=== PATIENT | male | born 1945 | race Caucasian/White ===

== ENCOUNTER 2021-07-12 20:02 | Inpatient (IN) ==
[2021-07-13 01:28] LABS: Calcium 8.6 mg/dL (8.6-10.3); Potassium 4.3 mEq/L (3.5-5.1)
[2021-07-13 01:41] LABS: Hematocrit 29.1 % (37.5-50.1); Hemoglobin 9.2 g/dL (12.9-16.9); Mean Corpuscular HGB Conc 31.6 g/dL (31.6-35.5); Mean Corpuscular Hemoglobin 26.7 pg (28.0-33.3); Mean Corpuscular Volume 84.6 fL (83.0-100.0); Mean Platelet Volume 10.2 fL (9.4-12.4); Platelet Count 113 K/mcL (140-400); Red Blood Count 3.44 M/mcL (4.19-5.50); Red Cell Distribution Width 16.4 % (11.5-14.5); White Blood Count 4.2 K/mcL (4.3-11.1)
[2021-07-13] MEDS ORDERED: Doxycycline 100 MG CAPSULE PO ONE (04:02)
[2021-07-13] MEDS ORDERED: cefTRIAXone 1,000 MG in Water for inj. (sterile) 10 ML IVP ONE (04:02)
[2021-07-13] MEDS ORDERED: *HR* OxyCODONE/APAP 5/325 TABLET PO ONE (04:17)
[2021-07-13] MEDS ORDERED: *HR* Promethazine 25 MG/ML VIAL IM PRN (05:57)
[2021-07-13] MEDS ORDERED: Naloxone 0.4 MG/ML INJ IVP PRN (05:57)
[2021-07-13] MEDS ORDERED: Ondansetron 4 MG/2 ML VIAL IVP PRN (05:57)
[2021-07-13] MEDS ORDERED: 0.9 % Sodium Chloride 1,000 ML IVC SCH (06:00)
[2021-07-13 06:02] LABS: Uric Acid 7.9 mg/dL (2.3-7.6)
[2021-07-13] MEDS ORDERED: Dextrose Gel 15 GM/37.5 ML TUBE PO PRN ×2 (06:05)
[2021-07-13] MEDS ORDERED: D5% in Water 1,000 ML IVC PRN (06:05)
[2021-07-13] MEDS ORDERED: *HR* Dextrose 50 % in Water (Syg) 50 ML SYRINGE IVP PRN (06:07)
[2021-07-13] MEDS ORDERED: *HR* Metoprolol 5 MG/5 ML VIAL IVP PRN (06:09)
[2021-07-13] MEDS: Piperacillin/Tazobactam 3.375 GM in 0.9 % Sodium Chloride Mini Bag 100 ML IVPB SCH ×2 (09:06→18:45)
[2021-07-13] MEDS: *HR* OxyCODONE Immed Rel 5 MG TABLET PO PRN ×3 (09:36→22:28)
[2021-07-13 10:58] LABS: Folate > 22.3 ng/mL (3.0-16.0); Vitamin B12 473 pg/mL (250-1100)
[2021-07-13] MEDS: Insulin LISPRO 300 UNITS/3 ML VIAL SUBQ SCH ×2 (13:04→17:16)
[2021-07-14] MEDS: Insulin LISPRO 300 UNITS/3 ML VIAL SUBQ SCH ×4 (00:55→16:53)
[2021-07-14] MEDS: Piperacillin/Tazobactam 3.375 GM in 0.9 % Sodium Chloride Mini Bag 100 ML IVPB SCH ×3 (01:09→16:35)
[2021-07-14] MEDS: Vancomycin 1,250 MG/262.5 ML IV.SOLN IVPB SCH (04:53)
[2021-07-14] MEDS: *HR* HYDROcodone/Acet 5/325 mg TABLET PO PRN ×2 (05:01→14:16)
[2021-07-14 05:19] LABS: Basophils % 0.4 %; Eosinophils % 0.4 %; Hematocrit 32.7 % (37.5-50.1); Hemoglobin 10.3 g/dL (12.9-16.9); Immature Granulocytes % 0.4 % (0-4); Lymphocytes # 0.3 K/mcL (0.6-4.6); Mean Corpuscular HGB Conc 31.5 g/dL (31.6-35.5); Mean Corpuscular Hemoglobin 27.2 pg (28.0-33.3); Mean Corpuscular Volume 86.3 fL (83.0-100.0); Mean Platelet Volume 10.3 fL (9.4-12.4); Monocytes # 0.3 K/mcL (0.0-1.3); Monocytes % 5.6 %; Neutrophils # 4.5 K/mcL (1.6-8.9); Platelet Count 117 K/mcL (140-400); Red Blood Count 3.79 M/mcL (4.19-5.50); Red Cell Distribution Width 16.6 % (11.5-14.5); Segmented Neutrophils % 87.2 %; White Blood Count 5.1 K/mcL (4.3-11.1)
[2021-07-14] MEDS ORDERED: Famotidine 20 MG/2 ML VIAL IVP ONE (07:00)
[2021-07-14] MEDS ORDERED: Ondansetron 4 MG/2 ML VIAL ONE (07:28)
[2021-07-14] MEDS ORDERED: Lidocaine -MPF 2% 2 ML VIAL ONE (07:28)
[2021-07-14] MEDS ORDERED: Artificial Tears SOLN 15 ML BOTTLE BOTH EYES PRN (08:12)
[2021-07-14] MEDS ORDERED: NON-FORMULARY MEDICATION 1 EACH EACH (Oxycodone Immed Rel 10 MG Tablet) PO PRN (08:12)
[2021-07-14] MEDS ORDERED: EPHEDrine 50 MG/ML VIAL ONE (08:38)
[2021-07-14] MEDS ORDERED: Acetaminophen IV 1,000 MG/100 ML BAG IVPB ONE (08:44)
[2021-07-14 08:45] LABS: Albumin 3.7 g/dL (3.5-5.7); Albumin/Globulin Ratio 0.8 (1.1-2.2); Calcium 9.2 mg/dL (8.6-10.3); Globulin 4.5 g/dL (2.4-3.5); Potassium 4.4 mEq/L (3.5-5.1); Total Protein 8.2 g/dL (6.4-8.9)
[2021-07-14] MEDS ORDERED: cefTRIAXone 1,000 MG in Water for inj. (sterile) 10 ML IVP SCH (09:00)
[2021-07-14] MEDS: *HR* OxyCODONE Immed Rel 5 MG TABLET PO PRN ×2 (09:55→16:34)
[2021-07-14] MEDS: Carbidopa/Levodopa 25/100 TABLET PO SCH ×3 (09:55→21:10)
[2021-07-14] MEDS: Finasteride 5 MG TABLET PO SCH (09:55)
[2021-07-14] MEDS: Metoprolol XL (24 HR) Succ 50 MG TAB.ER.24H PO SCH (09:55)
[2021-07-14] MEDS: Pyridoxine (B-6) 50 MG TABLET PO SCH (09:55)
[2021-07-14] MEDS: Folic Acid 1 MG TABLET PO SCH ×2 (09:56→21:10)
[2021-07-14] MEDS: rOPINIRole 1 MG TABLET PO SCH ×3 (09:56→21:10)
[2021-07-14] MEDS: *HR* Heparin 5,000 UNIT/ML VIAL SQ SCH (16:34)
[2021-07-14] MEDS: Gabapentin 300 MG CAPSULE PO SCH (21:10)
[2021-07-14] MEDS: Insulin DETEMIR 100 UNIT/ML X5UNITS SUBQ SCH (21:11)
[2021-07-15] MEDS: Piperacillin/Tazobactam 3.375 GM in 0.9 % Sodium Chloride Mini Bag 100 ML IVPB SCH ×3 (00:48→18:34)
[2021-07-15 04:58] LABS: Basophils % 0.3 %; Eosinophils % 0.8 %; Hemoglobin 9.3 g/dL (12.9-16.9); Immature Granulocytes % 0.3 % (0-4); Lymphocytes # 0.5 K/mcL (0.6-4.6); Lymphocytes % 14.3 %; Mean Corpuscular HGB Conc 32.1 g/dL (31.6-35.5); Mean Corpuscular Hemoglobin 27.8 pg (28.0-33.3); Mean Corpuscular Volume 86.6 fL (83.0-100.0); Mean Platelet Volume 10.1 fL (9.4-12.4); Monocytes # 0.3 K/mcL (0.0-1.3); Neutrophils # 2.8 K/mcL (1.6-8.9); Platelet Count 108 K/mcL (140-400); Red Blood Count 3.35 M/mcL (4.19-5.50); Red Cell Distribution Width 16.9 % (11.5-14.5); Segmented Neutrophils % 76.3 %; White Blood Count 3.6 K/mcL (4.3-11.1)
[2021-07-15] MEDS: *HR* Heparin 5,000 UNIT/ML VIAL SQ SCH ×2 (04:59→18:36)
[2021-07-15] MEDS: Vancomycin 1,250 MG/262.5 ML IV.SOLN IVPB SCH (05:00)
[2021-07-15 05:11] LABS: Acinetobacter baumannii by PCR Not Detected (Not Detect); Candida albicans by PCR Not Detected (Not Detect); Candida glabrata by PCR Not Detected (Not Detect); Candida krusei by PCR Not Detected (Not Detect); Candida parapsilosis by PCR Not Detected (Not Detect); Candida tropicalis by PCR Not Detected (Not Detect); Enterobacter cloacae Cmplx PCR Not Detected (Not Detect); Enterobacteriaceae by PCR Not Detected (Not Detect); Enterococcus by PCR Not Detected (Not Detect); Escherichia coli by PCR Not Detected (Not Detect); Klebsiella oxytoca by PCR Not Detected (Not Detect); Klebsiella pneumoniae by PCR Not Detected (Not Detect); Proteus by PCR Not Detected (Not Detect); Pseudomonas aeruginosa by PCR Not Detected (Not Detect); Serratia marcescens by PCR Not Detected (Not Detect); Staphylococcus aureus by PCR Not Detected (Not Detect); Staphylococcus by PCR Not Detected (Not Detect); Streptococcus agalactiae(B)PCR Not Detected (Not Detect); Streptococcus by PCR Not Detected (Not Detect); Streptococcus pneumoniae PCR Not Detected (Not Detect); Streptococcus pyogenes (A) PCR Not Detected (Not Detect); mecA Methicillin-Resist Gene Not Detected (Not Detect); vanA/B Vancomycin-Resist Genes Not Detected (Not Detect)
[2021-07-15 05:18] LABS: Magnesium 2.1 mg/dL (1.6-2.6); Potassium 4.3 mEq/L (3.5-5.1)
[2021-07-15 05:36] LABS: Estimated Average Glucose 183 mg/dl
[2021-07-15] MEDS ORDERED: Perflutren Lipid Microsphere 1.3 ML in 0.9 % Sodium Chloride 8.7 ML IVP PRN (07:28)
[2021-07-15] MEDS: rOPINIRole 1 MG TABLET PO SCH ×3 (09:36→22:45)
[2021-07-15] MEDS: Furosemide 40 MG TABLET PO SCH (09:37)
[2021-07-15] MEDS: Gabapentin 300 MG CAPSULE PO SCH ×2 (09:37→22:46)
[2021-07-15] MEDS: Finasteride 5 MG TABLET PO SCH (09:37)
[2021-07-15] MEDS: Metoprolol XL (24 HR) Succ 50 MG TAB.ER.24H PO SCH (09:37)
[2021-07-15] MEDS: Folic Acid 1 MG TABLET PO SCH ×2 (09:37→22:45)
[2021-07-15] MEDS: Pyridoxine (B-6) 50 MG TABLET PO SCH (09:37)
[2021-07-15] MEDS: Carbidopa/Levodopa 25/100 TABLET PO SCH ×3 (09:37→22:46)
[2021-07-15] MEDS: Insulin LISPRO 300 UNITS/3 ML VIAL SUBQ SCH ×3 (09:38→18:42)
[2021-07-15] MEDS: *HR* OxyCODONE Immed Rel 5 MG TABLET PO PRN ×2 (10:00→22:56)
[2021-07-15] MEDS: Insulin DETEMIR 100 UNIT/ML X5UNITS SUBQ SCH (22:45)
[2021-07-16] MEDS: Piperacillin/Tazobactam 3.375 GM in 0.9 % Sodium Chloride Mini Bag 100 ML IVPB SCH ×3 (02:26→18:28)
[2021-07-16 04:31] LABS: Basophils % 0.5 %; Eosinophils % 0.5 %; Hematocrit 27.6 % (37.5-50.1); Hemoglobin 8.6 g/dL (12.9-16.9); Immature Granulocytes % 0.3 % (0-4); Lymphocytes # 0.8 K/mcL (0.6-4.6); Lymphocytes % 20.4 %; Mean Corpuscular HGB Conc 31.2 g/dL (31.6-35.5); Mean Corpuscular Hemoglobin 26.3 pg (28.0-33.3); Mean Corpuscular Volume 84.4 fL (83.0-100.0); Mean Platelet Volume 9.9 fL (9.4-12.4); Monocytes # 0.3 K/mcL (0.0-1.3); Monocytes % 8.4 %; Neutrophils # 2.7 K/mcL (1.6-8.9); Platelet Count 115 K/mcL (140-400); Red Blood Count 3.27 M/mcL (4.19-5.50); Red Cell Distribution Width 16.7 % (11.5-14.5); Segmented Neutrophils % 69.9 %; White Blood Count 3.8 K/mcL (4.3-11.1)
[2021-07-16 04:50] LABS: Calcium 8.4 mg/dL (8.6-10.3); Phosphorous 3.3 mg/dL (2.7-4.5); Potassium 4.2 mEq/L (3.5-5.1)
[2021-07-16] MEDS: Vancomycin 1,250 MG/262.5 ML IV.SOLN IVPB SCH (05:41)
[2021-07-16] MEDS: *HR* Heparin 5,000 UNIT/ML VIAL SQ SCH ×2 (05:41→18:29)
[2021-07-16] MEDS: Finasteride 5 MG TABLET PO SCH (07:52)
[2021-07-16] MEDS: Furosemide 40 MG TABLET PO SCH (07:52)
[2021-07-16] MEDS: rOPINIRole 1 MG TABLET PO SCH ×3 (07:52→22:53)
[2021-07-16] MEDS: Carbidopa/Levodopa 25/100 TABLET PO SCH ×3 (07:52→22:54)
[2021-07-16] MEDS: Folic Acid 1 MG TABLET PO SCH ×2 (07:52→22:53)
[2021-07-16] MEDS: Pyridoxine (B-6) 50 MG TABLET PO SCH (07:53)
[2021-07-16] MEDS: Gabapentin 300 MG CAPSULE PO SCH ×2 (07:53→22:54)
[2021-07-16] MEDS: Metoprolol XL (24 HR) Succ 50 MG TAB.ER.24H PO SCH (07:53)
[2021-07-16] MEDS: Insulin LISPRO 300 UNITS/3 ML VIAL SUBQ SCH ×3 (07:54→19:45)
[2021-07-16] MEDS: Insulin DETEMIR 100 UNIT/ML X5UNITS SUBQ SCH (23:13)
[2021-07-16] MEDS: traZODone 50 MG TABLET PO PRN (23:14)
[2021-07-16] MEDS: *HR* OxyCODONE Immed Rel 5 MG TABLET PO PRN (23:21)
[2021-07-17] MEDS: Piperacillin/Tazobactam 3.375 GM in 0.9 % Sodium Chloride Mini Bag 100 ML IVPB SCH ×2 (02:09→10:17)
[2021-07-17 05:35] LABS: Adenovirus Not Detected (Not Detect); Bordetella Pertussis Not Detected (Not Detect); Chlamydophila pneumoniae Not Detected (Not Detect); Coronavirus 229E Not Detected (Not Detect); Coronavirus HKU1 Not Detected (Not Detect); Coronavirus NL63 Not Detected (Not Detect); Coronavirus OC43 Not Detected (Not Detect); Human Metapneumovirus Not Detected (Not Detect); Human Rhinovirus/Enterovirus Not Detected (Not Detect); Influenza A Subtype 2009 H1 Not Detected (Not Detect); Influenza B Not Detected (Not Detect); Mycoplasma pneumoniae Not Detected (Not Detect); Parainfluenza Virus 1 Not Detected (Not Detect); Parainfluenza Virus 2 Not Detected (Not Detect); Parainfluenza Virus 3 Not Detected (Not Detect); Parainfluenza Virus 4 Not Detected (Not Detect); Respiratory Syncytial Virus Not Detected (Not Detect)
[2021-07-17 05:36] LABS: SARS-CoV-2 DETECTED (Not Detect)
[2021-07-17] MEDS ORDERED: Vancomycin 1,250 MG/262.5 ML IV.SOLN IVPB SCH (08:00)
[2021-07-17] MEDS: Gabapentin 300 MG CAPSULE PO SCH (10:19)
[2021-07-17] MEDS: Carbidopa/Levodopa 25/100 TABLET PO SCH ×2 (10:19→20:03)
[2021-07-17] MEDS: Finasteride 5 MG TABLET PO SCH (10:19)
[2021-07-17] MEDS: Metoprolol XL (24 HR) Succ 50 MG TAB.ER.24H PO SCH (10:19)
[2021-07-17] MEDS: rOPINIRole 1 MG TABLET PO SCH ×3 (10:19→22:50)
[2021-07-17] MEDS: Folic Acid 1 MG TABLET PO SCH (10:19)
[2021-07-17] MEDS: Pyridoxine (B-6) 50 MG TABLET PO SCH (10:19)
[2021-07-17] MEDS: Furosemide 40 MG TABLET PO SCH (10:19)
[2021-07-17] MEDS: Insulin LISPRO 300 UNITS/3 ML VIAL SUBQ SCH ×3 (10:20→20:03)
[2021-07-17] MEDS ORDERED: Nitroglycerin 0.4 MG TAB.SUBL SL PRN (10:23)
[2021-07-17] MEDS: *HR* OxyCODONE Immed Rel 5 MG TABLET PO PRN (12:39)
[2021-07-17] MEDS: *HR* Heparin 5,000 UNIT/ML VIAL SQ SCH ×2 (12:40→20:03)
[2021-07-17 13:00] LABS: Troponin I 0.03 ng/mL (< 0.04)
[2021-07-17] MEDS: Insulin DETEMIR 100 UNIT/ML X5UNITS SUBQ SCH (22:40)
[2021-07-18] MEDS: Gabapentin 300 MG CAPSULE PO SCH ×3 (00:42→21:09)
[2021-07-18] MEDS: Carbidopa/Levodopa 25/100 TABLET PO SCH ×4 (00:42→21:09)
[2021-07-18] MEDS: *HR* OxyCODONE Immed Rel 5 MG TABLET PO PRN ×2 (00:42→11:14)
[2021-07-18] MEDS: traZODone 50 MG TABLET PO PRN (00:42)
[2021-07-18] MEDS: Folic Acid 1 MG TABLET PO SCH ×3 (00:42→21:09)
[2021-07-18 04:42] LABS: Hemoglobin 9.6 g/dL (12.9-16.9); Immature Granulocytes % 0.4 % (0-4)
[2021-07-18 04:44] LABS: Basophils % 0.4 %; Eosinophils % 1.2 %; Hematocrit 30.2 % (37.5-50.1); Immature Platelets 2.7 % (1.1-6.1); Lymphocytes # 0.6 K/mcL (0.6-4.6); Lymphocytes % 23.5 %; Mean Corpuscular HGB Conc 31.8 g/dL (31.6-35.5); Mean Corpuscular Hemoglobin 26.7 pg (28.0-33.3); Mean Corpuscular Volume 83.9 fL (83.0-100.0); Mean Platelet Volume 9.9 fL (9.4-12.4); Monocytes # 0.2 K/mcL (0.0-1.3); Monocytes % 8.8 %; Red Cell Distribution Width 16.1 % (11.5-14.5); Segmented Neutrophils % 65.7 %; White Blood Count 2.5 K/mcL (4.3-11.1)
[2021-07-18 04:50] LABS: Neutrophils # 1.6 K/mcL (1.6-8.9); Platelet Count 91 K/mcL (140-400)
[2021-07-18 04:58] LABS: Calcium 8.2 mg/dL (8.6-10.3); Magnesium 1.8 mg/dL (1.6-2.6); Phosphorous 3.8 mg/dL (2.7-4.5); Potassium 3.8 mEq/L (3.5-5.1)
[2021-07-18] MEDS: *HR* Heparin 5,000 UNIT/ML VIAL SQ SCH ×2 (07:32→20:51)
[2021-07-18] MEDS: Finasteride 5 MG TABLET PO SCH (10:00)
[2021-07-18] MEDS: rOPINIRole 1 MG TABLET PO SCH ×3 (10:00→21:09)
[2021-07-18] MEDS: Pyridoxine (B-6) 50 MG TABLET PO SCH (10:00)
[2021-07-18] MEDS: Furosemide 40 MG TABLET PO SCH (10:00)
[2021-07-18] MEDS: Metoprolol XL (24 HR) Succ 50 MG TAB.ER.24H PO SCH (10:01)
[2021-07-18] MEDS: Insulin LISPRO 300 UNITS/3 ML VIAL SUBQ SCH ×3 (10:01→16:21)
[2021-07-18] MEDS: Vancomycin 1,250 MG/262.5 ML IV.SOLN IVPB SCH (12:06)
[2021-07-18] MEDS ORDERED: Lidocaine -MPF 1% 5 ML AMPUL INFILT ONE (17:15)
[2021-07-18] MEDS: Insulin DETEMIR 100 UNIT/ML X5UNITS SUBQ SCH (22:27)
[2021-07-18] MEDS: Acetaminophen 325 MG TABLET PO PRN (23:55)
[2021-07-19] MEDS: *HR* OxyCODONE Immed Rel 5 MG TABLET PO PRN ×2 (05:15→17:02)
[2021-07-19] MEDS: *HR* Heparin 5,000 UNIT/ML VIAL SQ SCH ×2 (05:15→16:59)
[2021-07-19 07:14] LABS: Basophils % 0.4 %; Hemoglobin 9.4 g/dL (12.9-16.9); Immature Granulocytes % 0.4 % (0-4)
[2021-07-19 07:16] LABS: Eosinophils % 0.8 %; Immature Platelets 3.1 % (1.1-6.1); Lymphocytes # 0.7 K/mcL (0.6-4.6); Lymphocytes % 27.4 %; Mean Corpuscular HGB Conc 32.4 g/dL (31.6-35.5); Mean Corpuscular Hemoglobin 26.8 pg (28.0-33.3); Mean Corpuscular Volume 82.6 fL (83.0-100.0); Mean Platelet Volume 9.9 fL (9.4-12.4); Monocytes # 0.2 K/mcL (0.0-1.3); Monocytes % 6.5 %; Neutrophils # 1.6 K/mcL (1.6-8.9); Red Blood Count 3.51 M/mcL (4.19-5.50); Red Cell Distribution Width 16.2 % (11.5-14.5); Segmented Neutrophils % 64.5 %; White Blood Count 2.5 K/mcL (4.3-11.1)
[2021-07-19 07:17] LABS: Platelet Count 94 K/mcL (140-400)
[2021-07-19 07:33] LABS: Calcium 8.3 mg/dL (8.6-10.3); Potassium 3.8 mEq/L (3.5-5.1)
[2021-07-19] MEDS: Carbidopa/Levodopa 25/100 TABLET PO SCH ×3 (09:10→22:15)
[2021-07-19] MEDS: rOPINIRole 1 MG TABLET PO SCH ×3 (09:10→22:16)
[2021-07-19] MEDS: Metoprolol XL (24 HR) Succ 50 MG TAB.ER.24H PO SCH (09:10)
[2021-07-19] MEDS: Folic Acid 1 MG TABLET PO SCH ×2 (09:10→22:16)
[2021-07-19] MEDS: Gabapentin 300 MG CAPSULE PO SCH ×2 (09:10→22:15)
[2021-07-19] MEDS: Pyridoxine (B-6) 50 MG TABLET PO SCH (09:10)
[2021-07-19] MEDS: Furosemide 40 MG TABLET PO SCH (09:10)
[2021-07-19] MEDS: Finasteride 5 MG TABLET PO SCH (09:10)
[2021-07-19] MEDS: Insulin LISPRO 300 UNITS/3 ML VIAL SUBQ SCH ×3 (09:11→17:01)
[2021-07-19] MEDS: Vancomycin 1,250 MG/262.5 ML IV.SOLN IVPB SCH (11:34)
[2021-07-19] MEDS: Acetaminophen 325 MG TABLET PO PRN (11:57)
[2021-07-19] MEDS: Insulin DETEMIR 100 UNIT/ML X5UNITS SUBQ SCH (22:16)
[2021-07-20] MEDS: Acetaminophen 325 MG TABLET PO PRN (00:32)
[2021-07-20] MEDS: *HR* Heparin 5,000 UNIT/ML VIAL SQ SCH ×2 (06:47→17:28)
[2021-07-20] MEDS: Insulin LISPRO 300 UNITS/3 ML VIAL SUBQ SCH ×3 (08:13→17:28)
[2021-07-20] MEDS: Furosemide 40 MG TABLET PO SCH (08:13)
[2021-07-20] MEDS: rOPINIRole 1 MG TABLET PO SCH ×3 (08:13→21:43)
[2021-07-20] MEDS: Finasteride 5 MG TABLET PO SCH (08:13)
[2021-07-20] MEDS: Carbidopa/Levodopa 25/100 TABLET PO SCH ×3 (08:14→21:44)
[2021-07-20] MEDS: Pyridoxine (B-6) 50 MG TABLET PO SCH (08:14)
[2021-07-20] MEDS: Metoprolol XL (24 HR) Succ 50 MG TAB.ER.24H PO SCH (08:14)
[2021-07-20] MEDS: Folic Acid 1 MG TABLET PO SCH ×2 (08:14→21:44)
[2021-07-20] MEDS: Gabapentin 300 MG CAPSULE PO SCH ×2 (08:14→21:44)
[2021-07-20 09:32] LABS: Calcium 8.6 mg/dL (8.6-10.3); Potassium 4.3 mEq/L (3.5-5.1)
[2021-07-20] MEDS: dexAMETHasone 4 MG TABLET PO SCH (09:44)
[2021-07-20] MEDS: *HR* HYDROcodone/Acet 5/325 mg TABLET PO PRN (09:45)
[2021-07-20] MEDS: Vancomycin 1,250 MG/262.5 ML IV.SOLN IVPB SCH (13:34)
[2021-07-20 15:53] LABS: Albumin 3.2 g/dL (3.5-5.7); Albumin/Globulin Ratio 0.7 (1.1-2.2); Bilirubin,Direct 0.3 mg/dL (0.0-0.2); Bilirubin,Indirect 0.6 mg/dL (0.0-1.0); Bilirubin,Total 0.9 mg/dL (0.3-1.0); Globulin 4.5 g/dL (2.4-3.5); Total Protein 7.7 g/dL (6.4-8.9)
[2021-07-20] MEDS ORDERED: Remdesivir 200 MG in 0.9 % Sodium Chloride 100 ML IVPB ONE (18:00)
[2021-07-20] MEDS: Insulin DETEMIR 100 UNIT/ML X5UNITS SUBQ SCH (21:44)
[2021-07-20] MEDS: metroNIDAZOLE 500 MG TABLET PO SCH (21:46)
[2021-07-21] MEDS: *HR* HYDROcodone/Acet 5/325 mg TABLET PO PRN ×2 (00:27→20:04)
[2021-07-21] MEDS: *HR* Heparin 5,000 UNIT/ML VIAL SQ SCH ×2 (05:08→17:13)
[2021-07-21] MEDS: *HR* OxyCODONE Immed Rel 5 MG TABLET PO PRN ×2 (06:15→20:14)
[2021-07-21] MEDS: Insulin LISPRO 300 UNITS/3 ML VIAL SUBQ SCH ×3 (09:17→17:13)
[2021-07-21] MEDS: dexAMETHasone 4 MG TABLET PO SCH (09:19)
[2021-07-21] MEDS: Folic Acid 1 MG TABLET PO SCH ×2 (09:19→20:05)
[2021-07-21] MEDS: metroNIDAZOLE 500 MG TABLET PO SCH ×3 (09:19→20:05)
[2021-07-21] MEDS: Gabapentin 300 MG CAPSULE PO SCH ×2 (09:20→20:05)
[2021-07-21] MEDS: Furosemide 40 MG TABLET PO SCH (09:20)
[2021-07-21] MEDS: Finasteride 5 MG TABLET PO SCH (09:21)
[2021-07-21] MEDS: Carbidopa/Levodopa 25/100 TABLET PO SCH ×3 (09:21→20:05)
[2021-07-21] MEDS: Metoprolol XL (24 HR) Succ 50 MG TAB.ER.24H PO SCH (09:21)
[2021-07-21] MEDS: Pyridoxine (B-6) 50 MG TABLET PO SCH (09:35)
[2021-07-21] MEDS: rOPINIRole 1 MG TABLET PO SCH ×3 (09:35→20:05)
[2021-07-21] MEDS: Vancomycin 1,250 MG/262.5 ML IV.SOLN IVPB SCH (12:22)
[2021-07-21] MEDS: Remdesivir 100 MG in 0.9 % Sodium Chloride 100 ML IVPB SCH (18:19)
[2021-07-21] MEDS: Insulin DETEMIR 100 UNIT/ML X5UNITS SUBQ SCH (20:06)
[2021-07-22] MEDS: *HR* Heparin 5,000 UNIT/ML VIAL SQ SCH ×2 (05:15→17:13)
[2021-07-22 06:40] LABS: Hematocrit 28.7 % (37.5-50.1); Hemoglobin 9.3 g/dL (12.9-16.9); Immature Granulocytes % 0.4 % (0-4); Lymphocytes # 0.3 K/mcL (0.6-4.6); Lymphocytes % 14.9 %; Mean Corpuscular HGB Conc 32.4 g/dL (31.6-35.5); Mean Corpuscular Hemoglobin 26.3 pg (28.0-33.3); Mean Corpuscular Volume 81.1 fL (83.0-100.0); Monocytes # 0.1 K/mcL (0.0-1.3); Monocytes % 5.3 %; Neutrophils # 1.8 K/mcL (1.6-8.9); Platelet Count 101 K/mcL (140-400); Red Blood Count 3.54 M/mcL (4.19-5.50); Red Cell Distribution Width 15.9 % (11.5-14.5); Segmented Neutrophils % 79.4 %; White Blood Count 2.3 K/mcL (4.3-11.1)
[2021-07-22 06:52] LABS: Albumin 3.2 g/dL (3.5-5.7); Albumin/Globulin Ratio 0.8 (1.1-2.2); Bilirubin,Direct 0.3 mg/dL (0.0-0.2); Bilirubin,Indirect 0.4 mg/dL (0.0-1.0); Bilirubin,Total 0.7 mg/dL (0.3-1.0); Calcium 8.6 mg/dL (8.6-10.3); Globulin 4.1 g/dL (2.4-3.5); Potassium 4.4 mEq/L (3.5-5.1); Total Protein 7.3 g/dL (6.4-8.9)
[2021-07-22] MEDS: Carbidopa/Levodopa 25/100 TABLET PO SCH ×3 (09:37→21:44)
[2021-07-22] MEDS: Furosemide 40 MG TABLET PO SCH (09:37)
[2021-07-22] MEDS: *HR* OxyCODONE Immed Rel 5 MG TABLET PO PRN ×3 (09:37→22:34)
[2021-07-22] MEDS: metroNIDAZOLE 500 MG TABLET PO SCH ×3 (09:38→22:39)
[2021-07-22] MEDS: Gabapentin 300 MG CAPSULE PO SCH ×2 (09:38→21:44)
[2021-07-22] MEDS: Finasteride 5 MG TABLET PO SCH (09:38)
[2021-07-22] MEDS: Metoprolol XL (24 HR) Succ 50 MG TAB.ER.24H PO SCH (09:38)
[2021-07-22] MEDS: dexAMETHasone 4 MG TABLET PO SCH (09:38)
[2021-07-22] MEDS: Folic Acid 1 MG TABLET PO SCH ×2 (09:38→21:45)
[2021-07-22] MEDS: Pyridoxine (B-6) 50 MG TABLET PO SCH (09:42)
[2021-07-22] MEDS: rOPINIRole 1 MG TABLET PO SCH ×3 (09:43→21:43)
[2021-07-22] MEDS: Insulin LISPRO 300 UNITS/3 ML VIAL SUBQ SCH ×3 (09:46→17:16)
[2021-07-22] MEDS: Vancomycin 1,250 MG/262.5 ML IV.SOLN IVPB SCH (12:42)
[2021-07-22] MEDS: Remdesivir 100 MG in 0.9 % Sodium Chloride 100 ML IVPB SCH (17:13)
[2021-07-22] MEDS: Insulin DETEMIR 100 UNIT/ML X5UNITS SUBQ SCH (21:46)
[2021-07-23 03:50] LABS: Hematocrit 33.8 % (37.5-50.1); Hemoglobin 10.8 g/dL (12.9-16.9); Immature Granulocytes % 0.5 % (0-4); Lymphocytes # 0.4 K/mcL (0.6-4.6); Lymphocytes % 9.2 %; Mean Corpuscular Hemoglobin 26.4 pg (28.0-33.3); Mean Corpuscular Volume 82.6 fL (83.0-100.0); Mean Platelet Volume 10.9 fL (9.4-12.4); Monocytes # 0.2 K/mcL (0.0-1.3); Monocytes % 5.1 %; Neutrophils # 3.5 K/mcL (1.6-8.9); Platelet Count 127 K/mcL (140-400); Red Blood Count 4.09 M/mcL (4.19-5.50); Red Cell Distribution Width 16.2 % (11.5-14.5); Segmented Neutrophils % 85.2 %
[2021-07-23 03:54] LABS: White Blood Count 4.1 K/mcL (4.3-11.1)
[2021-07-23 04:05] LABS: Albumin 3.5 g/dL (3.5-5.7); Albumin/Globulin Ratio 0.8 (1.1-2.2); Bilirubin,Direct 0.3 mg/dL (0.0-0.2); Bilirubin,Indirect 0.5 mg/dL (0.0-1.0); Bilirubin,Total 0.8 mg/dL (0.3-1.0); Calcium 8.8 mg/dL (8.6-10.3); Globulin 4.4 g/dL (2.4-3.5); Potassium 4.9 mEq/L (3.5-5.1); Total Protein 7.9 g/dL (6.4-8.9)
[2021-07-23] MEDS: *HR* Heparin 5,000 UNIT/ML VIAL SQ SCH ×2 (05:20→17:38)
[2021-07-23] MEDS: Insulin LISPRO 300 UNITS/3 ML VIAL SUBQ SCH ×3 (09:07→17:39)
[2021-07-23] MEDS: dexAMETHasone 4 MG TABLET PO SCH (09:08)
[2021-07-23] MEDS: metroNIDAZOLE 500 MG TABLET PO SCH ×2 (09:09→16:03)
[2021-07-23] MEDS: Finasteride 5 MG TABLET PO SCH (09:09)
[2021-07-23] MEDS: Folic Acid 1 MG TABLET PO SCH (09:09)
[2021-07-23] MEDS: Pyridoxine (B-6) 50 MG TABLET PO SCH (09:10)
[2021-07-23] MEDS: Carbidopa/Levodopa 25/100 TABLET PO SCH ×2 (09:10→16:10)
[2021-07-23] MEDS: rOPINIRole 1 MG TABLET PO SCH ×2 (09:10→16:10)
[2021-07-23] MEDS: Metoprolol XL (24 HR) Succ 50 MG TAB.ER.24H PO SCH (09:10)
[2021-07-23] MEDS: Gabapentin 300 MG CAPSULE PO SCH (09:10)
[2021-07-23 11:52] VITALS: PULSE 62; TEMP 98.6
[2021-07-23] MEDS: Vancomycin 1,250 MG/262.5 ML IV.SOLN IVPB SCH (16:03)
[2021-07-23 16:52] VITALS: BP 147/72; O2SAT 95
[2021-07-23] MEDS: *HR* OxyCODONE Immed Rel 5 MG TABLET PO PRN (17:38)
[2021-07-23] MEDS: Remdesivir 100 MG in 0.9 % Sodium Chloride 100 ML IVPB SCH (17:39)
[2021-07-23] MEDS ORDERED: Insulin DETEMIR 100 UNIT/ML X5UNITS SUBQ SCH (21:00)
== END 2021-07-23 20:13 | disposition home or self-care (01) | DRG 616 ==
LOC: 4WAOSI 20:02 → EMEROOARM 20:02 → SUATTDRO 07-13 05:49 → 4WAOSI 07-13 08:05 → SUATTDRO 07-13 18:52 → 4WAOSI 07-15 22:46 → 3ANU 07-20 15:52
PROVIDERS: ADMIT Family Medicine; ATTEND Student in an Organized Health Care Education/Training Program